=== PATIENT | male | born 1980 ===

== ENCOUNTER 2016-07-31 15:16 | Emergency (ER) | payer OTHER ==
--- NOTE | 2016-07-31 15:45 | UC ---
Hand/Wrist HPI - HPI Summary HPI Summary: complaint of left finger pain that started today approx 12:00 today moved a big metal ball that was 150 pounds and got caught under ball finished the race now he cannot bend the end of finger can't straighten finger out pain in the end of his finger took some tylenol with minimal relief - History Of Current Complaint Chief Complaint: UCUpperExtremity Stated Complaint: LEFT RING FINGER INJURY Time Seen by Provider: 07/31/16 15:38 Hx Obtained From: Patient Onset/Duration: Sudden Onset Character Of Pain: Dull Aggravating Factor(s): Extension Alleviating: Ice - Allergies/Home Medications Allergies/Adverse Reactions: Allergies Allergy/AdvReac Type Severity Reaction Status Date / Time Penicillins Allergy Unknown Verified 07/31/16 15:23 Reaction Details Home Medications: Home Medications Ascorbic Acid TAB* [Vitamin C TAB*] 500 mg PO DAILY 07/31/16 [History Confirmed 07/31/16] Finasteride TAB* [Proscar TAB*] 5 mg PO DAILY 07/31/16 [History Confirmed ] Hydroxychloroquine TAB* [Plaquenil TAB*] 200 mg PO DAILY 07/31/16 [History Confirmed 07/31/16] Multivitamins/Minerals TAB* [Thera M Plus TAB*] 1 tab PO DAILY 07/31/16 [ History Confirmed 07/31/16] Naproxen TAB* [Naprosyn TAB*] 500 mg PO BID 07/31/16 [History Confirmed 07/31/16 ] PMH/Surg Hx/FS Hx/Imm Hx Previously Healthy: Yes Respiratory History Of: Reports: Asthma - Surgical History Surgical History: Yes Surgery Procedure, Year, and Place: surgery w/ plate placement to left orbital area 1998 - Family History Known Family History: Negative: Cardiac Disease, Hypertension, Diabetes - Social History Occupation: Employed Full-time Lives: With Family Alcohol Use: None Substance Use Type: None Smoking Status (MU): Never Smoked Tobacco Review of Systems Constitutional: Negative Skin: Negative Eyes: Negative ENT: Negative Respiratory: Negative Cardiovascular: Negative Gastrointestinal: Negative Genitourinary: Negative Motor: Negative Neurovascular: Negative Musculoskeletal: Other: - left ring finger pain Neurological: Negative Psychological: Negative All Other Systems Reviewed And Are Negative: Yes Physical Exam Triage Information Reviewed: Yes Appearance: No Pain Distress, Well-Nourished Vital Signs: Initial Vital Signs Temp 99.9 F 07/31/16 15:26 Pulse 83 07/31/16 15:26 Resp 16 07/31/16 15:26 BP 125/71 07/31/16 15:26 Pulse Ox 97 07/31/16 15:26 Vital Signs Reviewed: Yes Eyes: Positive: Conjunctiva Clear Neck: Positive: Supple Respiratory: Positive: Lungs clear, Normal breath sounds, No respiratory distress Cardiovascular: Positive: RRR, No Murmur Abdomen Description: Positive: Nontender, Soft Bowel Sounds: Positive: Present Musculoskeletal: Positive: Other: - LUE- ring finger cannot fully extended distal phalanx no tenderness in metacarpals or wrist Neurological: Positive: Alert Psychological Exam: Normal Skin Exam: Normal Hand/Wrist Course/Dx - Course Course Of Treatment: exam completed. no acute changes in x-ray. able to bend ring finger when he was rechecked - Differential Dx/Diagnosis Differential Diagnosis/HQI/PQRI: Dislocation, Fracture Provider Diagnoses: left ring finger contusion Discharge - Discharge Plan Condition: Stable Disposition: HOME Patient Education Materials: Finger Sprain (ED), RICE Therapy (ED) Referrals: Non Staff,Doctor [Primary Care Provider] - [facility] [place] [facility] [Outside] Additional Instructions: Increase fluids and rest Take acetaminophen or ibuprofen for fever or pain wear splint as needed to rest finger Please review your discharge instructions. If your symptoms do not improve please call your primary care provider or return to urgent care
[2016-07-31 15:59] VITALS: BP 125/71
--- NOTE | 2016-07-31 16:35 | RAD ---
INDICATION: Left ring finger injury. TECHNIQUE: 3 views of the left ring finger were obtained. FINDINGS: The finger is flexed slightly at the distal interphalangeal joint. The bones are normal alignment. There is focal soft tissue swelling around the distal phalanx. No fracture is seen. Joint spaces appear maintained. IMPRESSION: SOFT TISSUE SWELLING, NO FRACTURE IS SEEN.
[2016-07-31] MEDS ORDERED: Ibuprofen TAB* 400 MG PO ONE (16:50)
== END 2016-07-31 17:06 | disposition home or self-care (01) ==
LOC: UCCORT 15:16
DX: S60.042A Contusion of left ring finger without damage to nail, initial encounter (principal); W23.0XXA Caught, crushed, jammed, or pinched between moving objects, initial encounter; Y93.89 Activity, other specified; Y92.9 Unspecified place or not applicable; Z88.0 Allergy status to penicillin
CPT/HCPCS: 73140; 99203; A9270-GY; G0463